=== PATIENT | male | born 1985 | race Asian ===

== ENCOUNTER 2023-04-29 13:29 | Emergency (ER) | payer MEDICAID, SELFPAY ==
--- NOTE | ~2023-04-29 | XR_ITS ---
EXAMINATION: XR CHEST CLINICAL INFORMATION: Chest pain COMPARISON: None available. TECHNIQUE: Frontal view of the chest was obtained. FINDINGS: The heart is normal in size. No focal consolidation. No pleural effusion. No pneumothorax. XR/XR chest 1V IMPRESSION: Unremarkable examination.
--- NOTE | 2023-04-29 13:31 | ECG_ITS ---
Test Reason : CHEST PAIN Blood Pressure : / mmHG Vent. Rate : 083 BPM Atrial Rate : 083 BPM P-R Int : 154 ms QRS Dur : 096 ms QT Int : 356 ms P-R-T Axes : 040 053 013 degrees QTc Int : 418 ms Normal sinus rhythm Normal ECG No previous ECGs available Referred By: Generic ED Physician Electronically Signed By:ANNA NORMAN
[2023-04-29 13:42] VITALS: BP 132/84; PULSE 85; RESP 16; TEMP 36.5; O2SAT 99; BMI 30.8
--- NOTE | 2023-04-29 13:42 | ED_ITS ---
HPI - Chest Pain General Chief Complaint: Chest Pain Stated Complaint: chest pain sent from urgent care Time Seen by Provider: 04/29/23 16:42 Source: patient Mode of arrival: ambulatory Limitations: no limitations History of Present Illness HPI narrative: 37 year old male with history of depression presents to the ER with 2-day history of chest tightness as well as numbness and tingling in upper extremities, L > R. Reports the chest tightness is not painful, but rather feels like there is internal swelling . Reports the sensation comes and goes and is not currently bothering him. Reports he was resting when the sensation started and the sensation is not associated with exercise. Denies pleuritic pain, positional pain, shortness of breath, nausea, vomiting, diarrhea. As for the paresthesias, patient reports that he first experienced some numbness and tingling in his 4th and 5th left phalanges last night. Reports that the sensation extends up medial side of left arm and affects his left-sided neck and face. Reports the numbness and tingling also occasionally affects the 4th and 5th right phalanges, as well as his right lower extremity. Reports it comes and goes, and is not currently bothering him. Denies any headache, dizziness, confusion, acute change in vision. States that he is right-handed and works as an operating engineer apprentice. Denies any current medications, past surgical history, allergies. MD complaint: chest discomfort Onset (ago): day(s) Timing of current episode: episodic and now resolved Onset: during rest and during exertion Pain location: left chest Quality: tightness Relieving factors: nothing Exacerbating factors: nothing Treatment prior to arrival: none Risk Factors Coronary artery disease risk factors: none Thoracic aortic dissection risk factors: none Related Data Allergies Allergy/AdvReac Type Severity Reaction Status Date / Time No Known Allergies Allergy Verified 04/29/23 13:47 Review of Systems Review of Systems: Yes all other systems are reviewed and are negative [facility] Social History Social History Advance Directives: No Advance Directives Information Provided: Yes Physical Exam Vital Signs: Vital Signs: Last Vital Signs Temp 97.7 F 04/29/23 13:42 Pulse 82 04/29/23 16:37 Resp 16 04/29/23 16:37 BP 131/89 04/29/23 16:37 Pulse Ox 99 04/29/23 16:37 O2 Del Method Room Air 04/29/23 16:37 BMI result Body Mass Index 30.8 Const: General: cooperative, healthy appearing and no acute distress Orientation/consciousness: patient oriented x3 Eyes: Pupils: Equal, round and reactive pupils present Chest: Chest palpation & inspection: normal inspection of the chest Resp: Effort & Inspection: normal respiratory effort and able to speak in complete sentences Auscultation: clear to auscultation bilaterally Cardio: Rate: regular rate Rhythm: regular rhythm Peripheral pulses: radial pulses present Neuro: General: patient oriented x3 Cranial nerves: Yes CN's II-XII intact bilaterally and Yes Equal, round and reactive pupils present Motor exam (neuro): 5/5 motor strength present throughout (Strength 5/5 in upper ex tremities) Sensory Exam: Upper extremity sensory exam abnormal (Sensation intact in distal phalanges bilaterally. Negative Phalen test.) Course Course Course Narrative: RME: 37yo M (German Speaking) w/no sig PMHx c/o intermittent left sided substernal CP x2 days w/ radiation down LUE. Admits to assoc numbness in b/l UE's and RLE. Patient was sent in by [facility]. Also reports increased anxiety. Denies N/V EKG, Labs, CXR ordered Full HPI, ROS and PE to be performed by primary ED provider. Medical Decision Making Medical Decision Making [facility] Narrative: 37-year-old male with history of depression presents with intermittent chest tightness and numbness/ tingling to extremities, mostly left phalanges. Reports both issues are currently resolved. Physical exam largely unremarkable. Heart and lungs clear on auscultation. Cranial nerves intact. Strength of upper extremities 5/5 bilaterally. Sensation intact. Negative Phalen's test. Work up non-impressive. EKG normal, chest x-ray normal limits, negative troponin x1. CBC, metabolic panel unremarkable. Discussed with patient that he is safe for discharge at this point. Instructed him to follow up with PCP for further workup.. Advised him to return to ER if symptoms return and are persistent. Patient agree w/ plan and all questions were answered Differential Diagnosis Differential Diagnoses: The differential diagnosis associated with the presentation includes TIA, cervical radiculopathy, cubital tunnel syndrome, vitamin deficiency, anxiety OR, angina, pericarditis, chostocondritis, pectoral muscle strain, myocarditis, anxiety Admission/Observation Consideration of admission/observation: Escalation of care including admission/observation considered Lab Data MDM Lab Attestation statement: I reviewed the patient's lab results. unremarkable 04/29/23 14:00 04/29/23 14:00 Labs: Lab Results 04/29/23 04/29/23 04/29/23 Range/Units 14:00 14:00 14:00 WBC 7.3 (4.8-10.8) X10*3/uL RBC 5.31 (4.60-5.80) X10*6/uL Hgb 14.4 (14.0-18.0) g/dl Hct 42.3 (42.0-52.0) % MCV 79.7 L (80.0-98.0) fL MCH 27.1 (27.0-33.0) pg MCHC 34.0 (31.0-36.0) g/dl RDW 12.2 (11.0-16.0) % Plt Count 220 (160-400) X10*3/uL MPV 11.0 (9.4-12.4) fL Immature Gran % (Auto) 0.3 (0.0-0.4) % Neut % (Auto) 61.5 (45-73) % Lymph % (Auto) 28.6 (20-40) % [place] % (Auto) 8.3 (2-11) % Eos % (Auto) 1.0 (0-4) % Baso % (Auto) 0.3 (0-2) % Lymph # (Auto) 2.1 (1.2-4.9) X10*3/uL [place] # (Auto) 0.6 (0.1-1.2) X10*3/uL Eos # (Auto) 0.1 (0.0-0.4) X10*3/uL Baso # (Auto) 0.0 (0.0-0.2) X10*3/uL Abs Immat Gran (auto) 0.02 (0.00-0.03) X10*3/uL Absolute Neuts (auto) 4.5 (2.0-8.3) x10*3/uL Absolute Nucleated RBC 0.000 (0.0-0.012) X10*3/uL Nucleated RBC % (auto) 0.0 (0.0-0.2) /100WBC PT 11.4 (11.1-13.3) SEC INR 0.9 (0.9-1.1) Sodium 139 (135-145) mmol/L Potassium 4.1 (3.3-5.1) mmol/L Chloride 104 (96-108) mmol/L Carbon Dioxide 29 (22-29) mmol/L Anion Gap 10 L (12-20) BUN 15 (9-16) mg/dL Creatinine 1.02 (0.5-1.4) mg/dL Estim Creat Clear Calc 116.1 Estimated GFR > 60 Random Glucose 101 (60-115) mg/dL Calcium 9.8 (8.4-10.2) mg/dL Magnesium 2.2 (1.6-2.6) mg/dL Total Bilirubin 0.6 (0.0-1.0) mg/dL Direct Bilirubin 0.2 (0.0-0.5) mg/dL AST 20 (5-37) U/L ALT 23 (0-40) U/L Alkaline Phosphatase 52 (39-117) U/L Troponin I High Sens (<3.5-35.0) ng/L B-Natriuretic Peptide (<100) pg/mL Total Protein 7.8 (6.5-8.0) g/dL Albumin 4.5 (3.5-5.0) g/dL 04/29/23 04/29/23 Range/Units 14:00 14:00 WBC (4.8-10.8) X10*3/uL RBC (4.60-5.80) X10*6/uL Hgb (14.0-18.0) g/dl Hct (42.0-52.0) % MCV (80.0-98.0) fL MCH (27.0-33.0) pg MCHC (31.0-36.0) g/dl RDW (11.0-16.0) % Plt Count (160-400) X10*3/uL MPV (9.4-12.4) fL Immature Gran % (Auto) (0.0-0.4) % Neut % (Auto) (45-73) % Lymph % (Auto) (20-40) % [place] % (Auto) (2-11) % Eos % (Auto) (0-4) % Baso % (Auto) (0-2) % Lymph # (Auto) (1.2-4.9) X10*3/uL [place] # (Auto) (0.1-1.2) X10*3/uL Eos # (Auto) (0.0-0.4) X10*3/uL Baso # (Auto) (0.0-0.2) X10*3/uL Abs Immat Gran (auto) (0.00-0.03) X10*3/uL Absolute Neuts (auto) (2.0-8.3) x10*3/uL Absolute Nucleated RBC (0.0-0.012) X10*3/uL Nucleated RBC % (auto) (0.0-0.2) /100WBC PT (11.1-13.3) SEC INR (0.9-1.1) Sodium (135-145) mmol/L Potassium (3.3-5.1) mmol/L Chloride (96-108) mmol/L Carbon Dioxide (22-29) mmol/L Anion Gap (12-20) BUN (9-16) mg/dL Creatinine (0.5-1.4) mg/dL Estim Creat Clear Calc Estimated GFR Random Glucose (60-115) mg/dL Calcium (8.4-10.2) mg/dL Magnesium (1.6-2.6) mg/dL Total Bilirubin (0.0-1.0) mg/dL Direct Bilirubin (0.0-0.5) mg/dL AST (5-37) U/L ALT (0-40) U/L Alkaline Phosphatase (39-117) U/L Troponin I High Sens < 2.7 (<3.5-35.0) ng/L B-Natriuretic Peptide < 10 (<100) pg/mL Total Protein (6.5-8.0) g/dL Albumin (3.5-5.0) g/dL Independent Interpretation I performed an independent interpretation of an: EKG and Plain X-Ray Interpretation: EKG - Normal sinus rhythm, HR 83 bpm, normal QTc and QRS, no ST segment elevations CXR with clear lungs, no infiltrate. agree w/ radiology read Radiology Impression Discussion of test interpretation with radiology: I have reviewed the radiologist's reading. Radiologist Impression: EXAMINATION: XR CHEST CLINICAL INFORMATION: Chest pain COMPARISON: None available. TECHNIQUE: Frontal view of the chest was obtained. FINDINGS: The heart is normal in size. No focal consolidation. No pleural effusion. No pneumothorax. XR/XR chest 1V IMPRESSION: Unremarkable examination. Prescription Management I considered prescription management with: Other (anxiolytic) Chronic Conditions Patient?s care impacted by: Other (depression) Critical Care Time Critical Care Time Critical Care Time: No Discharge Plan Discharge Clinical Impression: Atypical chest pain, Extremity numbness Patient Disposition: Home, Self-Care Instructions: Paresthesia (ED), Noncardiac Chest Pain (ED) Additional Instructions: Your lab workup today was normal. You have normal blood counts, no signs of anemia. Your electrolytes, liver function and kidney function were all normal. Blood work to look for stress on the heart and heart failure were negative. Your chest x-ray was normal. Your EKG was normal. No signs of stress on the heart Recommend following up with your doctor for further evaluation and treatment If you develop new or worsening symptoms call 911 or come back to the ER for further evaluation. Interventions: ED Discharge Assessment Last Done: 04/29/23 17:38 Discharge Date/Time: 04/29/23 17:39
[2023-04-29 14:07] LABS: MANUAL DIFF FLAG NO
[2023-04-29 14:09] LABS: Basophils Percent Auto 0.3 % (0-2); Eosinophils Absolute Auto 0.1 X10*3/uL (0.0-0.4); Hematocrit 42.3 % (42.0-52.0); Hemoglobin 14.4 g/dl (14.0-18.0); Imm Gran Abs Auto 0.02 X10*3/uL (0.00-0.03); Imm Gran Pct Auto 0.3 % (0.0-0.4); Lymphocytes Absolute Auto 2.1 X10*3/uL (1.2-4.9); Lymphocytes Percent Auto 28.6 % (20-40); Mean Corpuscular Hemoglobin 27.1 pg (27.0-33.0); Mean Corpuscular Volume 79.7 fL (80.0-98.0); Monocytes Absolute Auto 0.6 X10*3/uL (0.1-1.2); Monocytes Percent Auto 8.3 % (2-11); Neutrophils Absolute Auto 4.5 x10*3/uL (2.0-8.3); Neutrophils Percent Auto 61.5 % (45-73); Platelet Count 220 X10*3/uL (160-400); Red Blood Count 5.31 X10*6/uL (4.60-5.80); Red Cell Distribution Width 12.2 % (11.0-16.0); White Blood Count 7.3 X10*3/uL (4.8-10.8)
[2023-04-29 14:17] LABS: INTERNATIONAL NORM RATIO 0.9 (0.9-1.1); Prothrombin Time 11.4 SEC (11.1-13.3)
[2023-04-29 14:24] LABS: Alanine Aminotransferase 23 U/L (0-40); Albumin Level 4.5 g/dL (3.5-5.0); Alkaline Phosphatase 52 U/L (39-117); Anion Gap 10 (12-20); Aspartate Amino Transferase 20 U/L (5-37); Bilirubin Direct 0.2 mg/dL (0.0-0.5); Bilirubin Total 0.6 mg/dL (0.0-1.0); Blood Urea Nitrogen 15 mg/dL (9-16); Calcium 9.8 mg/dL (8.4-10.2); Carbon Dioxide 29 mmol/L (22-29); Chloride 104 mmol/L (96-108); Creatinine Clr Calc Pharmacy 116.1; Estimated Glomerular Filt Rate > 60; Glucose Random 101 mg/dL (60-115); Magnesium 2.2 mg/dL (1.6-2.6); Potassium 4.1 mmol/L (3.3-5.1); Sodium 139 mmol/L (135-145); Total Protein 7.8 g/dL (6.5-8.0)
[2023-04-29 14:28] LABS: B Type Natriuretic Peptide < 10 pg/mL (<100)
[2023-04-29 14:33] LABS: Troponin-I High Sensitivity < 2.7 ng/L (<3.5-35.0)
[2023-04-29 16:37] VITALS: BP 131/89; PULSE 82; RESP 16; O2SAT 99
== END 2023-04-29 17:39 | disposition home or self-care (01) ==
PROVIDERS: Physician Assistant; Emergency Provider Student in an Organized Health Care Education/Training Program
DX: R07.89 Other chest pain (principal); R20.0 Anesthesia of skin
CPT/HCPCS: 36415; 71045; 80048; 80076; 83735; 83880; 84484; 85025; 85610; 93005; 99283; 99284